=== PATIENT | male | born 1965 | race Caucasian/White ===

== ENCOUNTER → 2021-01-23 13:28 | Outpatient (BNVA) | payer OTHER, SELFPAY | PROVIDERS: Family Provider Family Medicine; Visit Provider Surgery | DX: Z20.822 Contact with and (suspected) exposure to COVID-19 (principal) | CPT/HCPCS: 87635 ==

== ENCOUNTER 2021-01-29 07:40 | Day surgery (SDC) | payer OTHER, SELFPAY ==
[2021-01-27 14:10] VITALS: BMI 33.0
--- NOTE | 2021-01-29 08:04 | ANES.PREANE2 ---
Pre-Anesthetic Assessment Pre-Anesthetic Assessment: Height/Weight: Height 1.85 m Weight 113.398 kg Proposed Procedure: Operation Date: 01/29/21 09:00 Proposed Procedures p Colonoscopy 887855 Z86.010(Not Applicable) - Edward Avitia MD Was Beta Ledy taken within 24 hours: N/A Was Clonidine taken within 24 hours: N/A Social: Social History: No alcohol and No tobacco Exam: Pre-Anes Outpt Exam: alert, oriented x 3, clear to auscultation bilaterally and regular rate & rhythm Airway: Submandibular: WNL Cervical ROM: WNL MP: 2 History/ROS: No significant complaints Pulmonary: Pulmonary: None reported CV/HEM: CV/HEM: None reported : : None reported Hepatic: Hepatic: None reported GI: GI: None reported Metabolic: Metabolic: None reported Musc/skel: Musc/skel: None reported Neuropsych: Neuropsych: None reported Anesthetic Plan: ASA status: 1 Anesthesia: MAC Data Anesthesia Cardiac Studies: No Data to Display
[2021-01-29 08:25] VITALS: BP 137/85; PULSE 67; RESP 16; TEMP 36.5; O2SAT 97
[2021-01-29] MEDS: sodium chloride 0.9% 1,000 ML 30 ML IV (08:30)
--- NOTE | 2021-01-29 08:38 | W.PM.OPSUD ---
Surgery/Procedure H&P Update DATE OF PROCEDURE: January 29, 2021 DATE H&P PERFORMED: 01/20/21 H&P UPDATE INFORMATION: No changes to prior documentation PLANNED PROCEDURE: Operation Date: 01/29/21 09:00 Proposed Procedures p Colonoscopy 635798 Z86.010(Not Applicable) - Edward Avitia MD
--- NOTE | 2021-01-29 09:36 | ANE.PACU2 ---
Inpatient post-anesthesia follow up: Airway intact: Yes Vital signs: Temperature 97.7 F Pulse Rate 67 Respiratory Rate 16 Blood Pressure 137/85 Pulse Oximetry 97 Oxygen Delivery Me thod Room Air Oxygen Flow Rate Fraction of Inspir ed Oxygen Hydration adequate: Yes Nausea and vomiting: No Pain level: 1 Mental status: Baseline
[2021-01-29 09:37] VITALS: BP 138/96; PULSE 70; RESP 18; TEMP 36.1; O2SAT 97
[2021-01-29 09:48] VITALS: BP 138/94; PULSE 58; RESP 18; TEMP 36.7; O2SAT 97
== END 2021-01-29 10:18 | disposition home or self-care (01) ==
PROVIDERS: PCP Family Medicine; Visit Provider Surgery
PROC: 0DJD8ZZ Inspection of Lower Intestinal Tract, Via Natural or Artificial Opening Endoscopic (ICD-10-PCS; CPT 45378; principal; 2021-01-29 09:00)
DX: Z12.11 Encounter for screening for malignant neoplasm of colon (principal); Z80.0 Family history of malignant neoplasm of digestive organs; Z86.010 Personal history of colon polyps; Z83.71 Family history of colonic polyps; K64.8 Other hemorrhoids; D12.0 Benign neoplasm of cecum
CPT/HCPCS: 12345; 45385; 88305; 96360; 96361; J2704; J7030

== ENCOUNTER 2021-06-17 08:12 | Outpatient (CLI) | payer OTHER, SELFPAY ==
--- NOTE | 2021-06-17 08:16 | XR_ITS ---
WS: [id number] ANKLE LEFT TECHNIQUE: 3 views of the left ankle CLINICAL INFORMATION: SPRAIN OF OTHER LIGAMENT OF LEFT ANKLE COMPARISON: None. FINDINGS: Soft tissue edema. Normal ankle mortise. Normal medial lateral malleolus. No evidence of acute avulsi on fracture. Sclerotic lesion distal tibial diaphysis with cortical thickening and sclerosis. Eccentric lesion parish sures approximately 5.1 x 2.3 cm with some central patchy lucency. Somewhat irregular zone of transit ion along the central margin. This may represent incidental benign lesion such as nonossifying fibrom a, enchondroma, or chronic osteomyelitis but is somewhat irregular and indeterminant. More aggressive bone neoplasm and metastasis not excluded. Recommend further evaluation with MRI without and with ga dolinium. No associated soft tissue mass or cortical destruction. XR/XR ankle LT min 3V* [id number] IMPRESSION: 1. Moderate diffuse soft tissue edema. No acute fractures. 2. Eccentric sclerotic lesion distal tibial diaphysis with cortical thickenin g and central patchy lucency. This is indeterminant and recommend further evalu ation with MRI without and with gadolinium.
== END 2021-06-17 08:13 | disposition home or self-care (01) ==
PROVIDERS: PCP Family Medicine; Visit Provider Nurse Practitioner
DX: S93.492A Sprain of other ligament of left ankle, initial encounter (principal); X58.XXXA Exposure to other specified factors, initial encounter; R60.0 Localized edema
CPT/HCPCS: 73610

== ENCOUNTER 2021-07-03 09:12 | Outpatient (CLI) | payer OTHER, SELFPAY ==
--- NOTE | 2021-07-03 10:00 | MR_ITS ---
WS: [id number] MRI LEFT ANKLE with and without CONTRAST. COMPARISON: Radiograph 06/17/2021 This MRI was obtained on two separate days to include the entire area. Initial MRI 07/03/2021 and foll ow-up MRI 07/13/2021. Multiplanar, multisequence imaging is performed with and without contrast. Sagittal and axial T1 fat sat sequences post-MultiHance 20 cc IV. Moderate amount of edema within the peroneus brevis and longus tendon sheath. No full-thickness tears are identified. No acute marrow edema or fracture. There is a large amount of marrow edema in the cu boid but no fracture. The second attempt at MRI of the LEFT lower extremity is extremely limited. Very poor quality imaging is submitted. Contrast examination is inadequate. There is a lesion within the distal tibia with exp ansion of the cortex and the zone of transition is ill-defined. MR/MR ankle LT wo/w con [id number] IMPRESSION: 1. Suboptimal and inadequate evaluation of the tibial lesion seen on radiograp h 06/17/2021. Ill-defined zone of transition with cortical thickening and medulla ry involvement. Inadequate evaluation by MRI. This was a second attempt at eval uating this bone lesion. At this time follow-up with orthopedics and possible b iopsy is recommended. 2. Increase fluid along the peroneus tendon sheath but no tendon tear. 3. Posttraumatic marrow edema in the cuboid but no fracture seen. Notified Dr. Oropeza at 07/14/2021 11:26 AM. Patient not to be charged for the second MRI evaluation.
[2021-07-03] MEDS: gadobenate dimeglumine 20 mL vial IV (10:38)
== END 2021-07-03 09:13 | disposition home or self-care (01) ==
PROVIDERS: PCP Family Medicine; Visit Provider Nurse Practitioner
DX: R93.89 Abnormal findings on diagnostic imaging of other specified body structures (principal); R60.0 Localized edema
CPT/HCPCS: 73723; A9577

== ENCOUNTER → 2022-09-24 18:07 | Outpatient (BNVA) | payer OTHER, SELFPAY | PROVIDERS: PCP Family Medicine; Visit Provider Emergency Medicine | DX: R50.9 Fever, unspecified (principal); A08.4 Viral intestinal infection, unspecified | CPT/HCPCS: 87400 ==

== ENCOUNTER 2024-02-06 06:14 | Outpatient (CLI) | payer OTHER, SELFPAY ==
--- NOTE | 2024-02-06 06:25 | US_ITS ---
WS: [id number] ULTRASOUND SOFT TISSUES RIGHT cervical chain. HISTORY: MASS ON NECK COMPARISON: None available. TECHNIQUE: 2-D and color Doppler imaging is submitted. There is a mixed echogenicity mass in the RIGHT cervical chain corresponding to the palpable abnormal ity. On the imaging submitted this location is indeterminate. This could be anywhere along the RIGHT cervical chain. This is a thick wall hypoechoic mass with a central complex cystic structure. The ove rall measurement is 1.7 x 0.9 x 1.6 cm. The hypoechoic central portion measures 0.4 cm. There is slig ht increased vascularity. IMPRESSION: Mixed echogenic mass on the RIGHT cervical chain corresponding to the palpable abnormality. Different ial includes sebaceous or epidermoid cyst. Infected hair follicle or abscess. Less likely lymph node. If this mass persists recommend follow-up neck CT with IV contrast.
== END 2024-02-06 06:15 | disposition home or self-care (01) ==
LOC: RAD 06:14
PROVIDERS: PCP Family Medicine; Visit Provider Nurse Practitioner Family
DX: R22.1 Localized swelling, mass and lump, neck (principal)
CPT/HCPCS: 76536

== ENCOUNTER 2024-08-13 08:43 | Outpatient (CLI) | payer OTHER, SELFPAY ==
--- NOTE | 2024-08-13 08:46 | CT_ITS ---
WS: [id number] CT chest w con* [id number] HISTORY: HILAR ADENOPATHY TECHNIQUE: Axial imaging performed through the thorax. Coronal and sagittal reformats are submitted. All CT scans at [facility] use at least one of these dose optimization techniques: automated exposure control; mA and/or kV adjustment per patient size (includes targeted exams where dose is mat ched to clinical indication); or iterative reconstruction. CONTRAST: Omnipaque 350; 100 mL IV. DLP: 556.21 mGy.cm COMPARISON: None available. Lungs and central airway: Normal. Pleura: Normal. No pleural effusion. Heart and pericardium: Normal size heart with no pericardial effusion. Mediastinum and gaurav: There is mild prominent hilar lymphoid tissue but no pathological adenopathy id entified. Mild central bronchial wall thickening. There is a tiny subcarinal calcified lymph node. Th ere is an additional smaller calcified lymph node inferior RIGHT paratracheal region. Vessels: Normal size aortic and pulmonary artery. No coronary artery calcifications. Chest wall and lower neck: No soft tissue masses. Upper abdomen: Normal. Osseous structures: Mild thoracic spondylosis. CT/CT chest w con* [id number] IMPRESSION: 1. Mild bilateral perihilar bronchial wall thickening most likely due to bronc hitis. No pathologically enlarged lymph nodes. 2. No pulmonary mass or nodule. 3. Very small subcarinal and RIGHT hilar calcified lymph nodes.
[2024-08-13 09:36] LABS: Blood Urea Nitrogen 17 mg/dL (8-23); Glomerular Filtration Rate 98.3 mL/min (90-130)
[2024-08-13] MEDS: iohexol 350 mg/mL 500 mL Btl (per mL) IV (09:41)
== END 2024-08-13 08:44 | disposition home or self-care (01) ==
LOC: RAD 08:44
PROVIDERS: PCP Internal Medicine; Visit Provider Internal Medicine
DX: R59.0 Localized enlarged lymph nodes (principal)
CPT/HCPCS: 71260; 82565; 84520